=== PATIENT | female | born 1950 | race Caucasian/White ===

== ENCOUNTER 2019-01-08 06:37 | Day surgery (SDC) | payer MEDICARE, BC ==
[~2019-01-08 06:37] MED LIST: Bupivacaine 0.5% 50 ML MDV ONE; Lidocaine 1% with EPINEPHrine 1:100,000 50 ML MDV ONE
[2019-01-08] MEDS ORDERED: Acetaminophen 500 MG Tab PO ONE (07:00)
[2019-01-08] MEDS ORDERED: Dextrose 5%-Lactated Ringers 1,000 ML IV SCH (07:00)
[2019-01-08] MEDS ORDERED: ceFAZolin 2 GM in Premix Bag 1 BAG IV ONE (07:01)
[2019-01-08] MEDS ORDERED: Diltiazem 120 MG Cap.CD PO ONE (07:09)
[2019-01-08] MEDS ORDERED: Metoprolol Tartrate 50 MG Tab PO ONE (07:23)
[2019-01-08] MEDS ORDERED: Ondansetron 4 MG/2 ML SDV ONE (07:25)
[2019-01-08] MEDS ORDERED: Rocuronium 50 MG/5 ML Vial ONE (07:25)
[2019-01-08] MEDS ORDERED: Dexamethasone 4 MG/ML SDV ONE (07:25)
[2019-01-08] MEDS ORDERED: Glycopyrrolate 0.2 MG/ML 5 ML MDV ONE (07:25)
[2019-01-08] MEDS ORDERED: Neostigmine Methylsulfate 1 MG/ML 5 ML Syringe ONE (07:25)
[2019-01-08] MEDS ORDERED: Succinylcholine 200 MG/10 ML MDV ONE (07:25)
[2019-01-08] MEDS ORDERED: Propofol 200 MG/20 ML SDV ONE (07:25)
[2019-01-08] MEDS ORDERED: fentaNYL 100 MCG/2 ML SDV ONE (07:35)
[2019-01-08] MEDS ORDERED: Meropenem 500 MG SDV ONE (08:34)
[2019-01-08] MEDS ORDERED: Lactated Ringers 1,000 ML ONE (08:49)
[2019-01-08] MEDS ORDERED: HYDROmorphone 1 MG/ML Syringe IVPUSH ONE (09:20)
--- NOTE | 2019-01-18 11:40 | OR ---
DATE OF PROCEDURE: 01/08/2019 PREOPERATIVE DIAGNOSIS: Large hematoma, right angel area. POSTOPERATIVE DIAGNOSES: 1. Large hematoma, right angel area. 2. Avulsion of a branch of anterior tibial artery. OPERATIVE PROCEDURE: 1. Exploration of right angel area with evacuation of hematoma (20501). 2. Lateral repair of anterior tibial artery (96351). 3. Placement of Unna boot (51290). ANESTHESIA: General. INDICATIONS FOR PROCEDURE: This is a 68-year-old who is presently on chronic anticoagulation for atrial fibrillation, presenting with after bumping her right leg in the angel area and developing a large hematoma. She was seen in [facility] yesterday and the plan is to proceed with evacuation of the hematoma and to control any possible underlying bleeding sites at that time. We will also likely place an Unna boot to facilitate adequate healing of the leg without developing venous stasis related skin breakdown. Potential risks of the procedure including bleeding and infection were reviewed, and the patient wishes to proceed. DETAILS OF PROCEDURE: The patient was taken to the operating room. After general endotracheal anesthesia was induced, the right leg was prepped and draped. A vertical incision over the hematoma was made. We kept the incision somewhat medial to where there was some skin blistering. This was carried down through the skin and subcutaneous tissue. A large hematoma was then evacuated. This extended roughly residential down the angel up to roughly 2-3 fingerbreadths below the lower end of the patella. After this was evacuated, the patient noted to have some arterial bleeding from the anterior tibial artery. It appears she probably had avulsed a branch of the anterior tibial artery flush with that vessel. Lateral repair of the anterior tibial artery was then accomplished with a figure-of- eight stitch of 5-0 Prolene stitch. Good pulsation of the artery was confirmed following the repair. At this point, the area was then irrigated with antibiotic-containing saline solution. Luther-Moya drain was placed medially into the length of the hematoma. The incision was then closed with 2 layers of 3-0 Vicryl stitch deep and uriah for the skin. Drain was fixed with some 3-0 Vicryl stitch as well. After washing the leg, the Unna boot was then placed from the base of the toes to the upper most calf and following this a 4 inch Memo wrap applied. We will see the patient back next Friday for recheck. The patient was taken to the recovery room in satisfactory condition. Jori Diaz MD /[id number]
== END 2019-01-08 11:00 | disposition home or self-care (01) ==
LOC: JP.SDS 06:37
PROVIDERS: ATTEND Surgery
DX: S80.11XA Contusion of right lower leg, initial encounter (principal); S85.141A Laceration of anterior tibial artery, right leg, initial encounter; I48.91 Unspecified atrial fibrillation; W22.8XXA Striking against or struck by other objects, initial encounter; Z79.01 Long term (current) use of anticoagulants; Z79.51 Long term (current) use of inhaled steroids; Z79.899 Other long term (current) drug therapy
CPT/HCPCS: 10140; 35226; 36415; 80048; 83735; 84100; 85027; 85610; 87070; 87075; 87205; A9270; J0330; J0690; J1100; J1170; J2020; J2185; J2405; J2704; J2710; J3010; J3490; J7042; J7120